=== PATIENT | female | born 1970 | race Caucasian/White ===

== ENCOUNTER 2017-05-04 20:54 | Emergency (ER) | payer MEDICAID, OTHER ==
--- NOTE | 2017-05-04 23:56 | ER Document Report ---
ED General - General Chief Complaint: Leg Swelling Stated Complaint: LEG PAIN Time Seen by Provider: 05/04/17 22:45 Mode of Arrival: Ambulatory Information source: Patient Notes: 46-year-old female presents to ED for complaint of back pain since yesterday and bilateral leg swelling and pain today. There is no obvious swelling while seen in the ED. She denies any fall or injuries to her back. She is on pain management from her neurologist of narcotics and gabapentin. TRAVEL OUTSIDE OF THE [place] IN LAST 30 DAYS: No - HPI Onset: Yesterday Onset/Duration: Gradual, Intermittent Quality of pain: Achy Severity: Moderate Pain Level: 3 Associated symptoms: Leg swelling, Other - Back pain Exacerbated by: Movement, Walking Relieved by: Denies Similar symptoms previously: Yes Recently seen / treated by doctor: No - Related Data Allergies/Adverse Reactions: No Known Allergies Allergy (Verified 05/04/17 20:57) Past Medical History - General Information source: Patient - Social History Smoking Status: Never Smoker Cigarette use (# per day): No Chew tobacco use (# tins/day): No Smoking Education Provided: No Frequency of alcohol use: None Drug Abuse: None Lives with: Family Family History: CAD - mother, Hyperlipidemia, Hypertension Patient has suicidal ideation: No Patient has homicidal ideation: No - Past Medical History Cardiac Medical History: Reports: Hx Coronary Artery Disease, Hx Heart Attack, Hx Hypercholesterolemia, Hx Hypertension Pulmonary Medical History: Reports: Hx Pneumonia - as child EENT Medical History: Reports: None Neurological Medical History: Reports: Hx Migraine Endocrine Medical History: Reports: Hx Diabetes Mellitus Type 2 Renal/ Medical History: Reports: None Malignancy Medical History: Reports: None GI Medical History: Reports: Hx Cirrhosis, Hx Gastroesophageal Reflux Disease Musculoskeltal Medical History: Reports None Skin Medical History: Reports None Psychiatric Medical History: Reports: Hx Depression Traumatic Medical History: Reports: None Infectious Medical History: Reports: None Past Surgical History: Reports: Hx Cardiac Catheterization, Hx Cholecystectomy, Hx Coronary Stent, Hx Tonsillectomy - Immunizations Hx Diphtheria, Pertussis, Tetanus Vaccination: Yes Review of Systems - Review of Systems Constitutional: No symptoms reported EENT: No symptoms reported Cardiovascular: No symptoms reported Respiratory: No symptoms reported Gastrointestinal: No symptoms reported Genitourinary: No symptoms reported Female Genitourinary: No symptoms reported Musculoskeletal: Back pain, Leg swelling - leg pain Skin: No symptoms reported Hematologic/Lymphatic: No symptoms reported Neurological/Psychological: No symptoms reported -: Yes All other systems reviewed and negative Physical Exam - Vital signs Vitals: Temp Pulse Resp BP Pulse Ox 98.5 F 93 17 132/98 H 98 05/04/17 21:36 05/04/17 21:36 05/04/17 21:36 05/04/17 21:36 05/04/17 21:36 Interpretation: Normal - General General appearance: Appears well, Alert - HEENT Head: Normocephalic, Atraumatic Eyes: Normal Pupils: PERRL - Respiratory Respiratory status: No respiratory distress Chest status: Nontender Breath sounds: Normal Chest palpation: Normal - Cardiovascular Rhythm: Regular Heart sounds: Normal auscultation Murmur: No - Abdominal Inspection: Normal Distension: No distension Bowel sounds: Normal Tenderness: Nontender Organomegaly: No organomegaly - Back Back: Normal, Nontender - Extremities General upper extremity: Normal inspection, Normal color, Normal ROM, Normal temperature General lower extremity: Normal inspection, Normal color, Normal ROM, Normal temperature, Normal weight bearing. No: Teo's sign Calf: Tender Ankle: Tender. No: Edema Foot: Normal, Nontender. No: Edema - Neurological Neuro grossly intact: Yes Cognition: Normal Orientation: AAOx4 Abram Coma Scale Eye Opening: Spontaneous [place] Coma Scale Verbal: Oriented [place] Coma Scale Motor: Obeys Commands [place] Coma Scale Total: 15 Speech: Normal Motor strength normal: LUE, RUE, LLE, RLE Sensory: Normal - Psychological Associated symptoms: Normal affect, Normal mood - Skin Skin Temperature: Warm Skin Moisture: Dry Skin Color: Normal Course - Re-evaluation Re-evalutation: 05/05/17 00:09 Patient denies any loss of control of bowel bladder, no saddle anesthesia, no loss of control of lower extremities, and no loss of sensation to her lower extremities. Patient complains of pitting edema to bilateral extremities but there is no edema noted. She has good pedal pulses. Patient became very angry and stated that she does have edema I do not know her ankles. I told her that she does not have pitting edema and if she has mild edema there is she can follow-up with her primary doctor for that. I instructed him to elevation and ice for her pain and to follow-up with her doctor on Michelle. - Vital Signs Vital signs: Temp Pulse Resp BP Pulse Ox 98.8 F 96 16 137/73 H 97 05/04/17 23:55 05/04/17 23:55 05/04/17 23:55 05/04/17 23:55 05/04/17 23:55 Discharge - Discharge Clinical Impression: Leg pain, bilateral Low back pain Qualifiers: Chronicity: unspecified Back pain laterality: bilateral Sciatica presence: without sciatica Qualified Code(s): M54.5 - Low back pain HTN (hypertension) Qualifiers: Hypertension type: unspecified Qualified Code(s): I10 - Essential (primary) hypertension Condition: Stable Disposition: HOME, SELF-CARE Additional Instructions: LOW BACK PAIN: Three out of every four people will have an episode of disabling back pain during their lifetime. Most commonly the pain is due to straining of the muscles and ligaments in the low back. Usual treatment includes: (1) Rest on a firm surface. Avoid lying on your stomach. (2) Ice pack the painful area. After a few days, gentle heat may be used intermittently to relax the area, or ice packs can be continued. (3) Medication may be needed -- muscle relaxers and antiinflammatory medicines are commonly used. (4) As the back improves, exercises are prescribed to strengthen the back and abdominal muscles. Your doctor will advise you on the proper care for your back at each stage in your recovery. You may be better in a few days -- or healing may take several weeks. If new symptoms of a "herniated disc" (radiation of pain, numbness, or tingling down the back of the leg or weakness in the leg) occur, you should be re-examined. Further testing may be necessary. Leg Pain, Nonspecific We did not find an obvious cause for your leg pain. There's no sign of blood clot, infection, or other serious disease. Possible causes of vague leg pain include muscle or joint inflammation, disc disease in the lower back, pressure on the nerves in the back, or reduced blood flow through the arteries of the leg. Rest the leg. Pain can be eased with an antiinflammatory pain medicine such as ibuprofen. If the pain involves a small area, a heating pad might help. Call the doctor or return if the leg becomes swollen, weak, discolored, or increasingly painful, or if you develop any other significant change in your health. ICE PACKS: Apply ice packs frequently against the painful area. Many different schedules are recommended, such as "20 minutes on, 20 minutes off" or "one hour ice, two hours rest." If you need to work, you may need to go longer between ice treatments. You should plan to have the area ice packed AT LEAST one fourth of the time. The ice should be applied over the wrap, tape, or splint, or over a layer of cloth -- not directly against the skin. Some ice bags have a built-in cloth and can be put directly on the skin. WARM PACKS: After approximately two days, apply gentle heat (such as a heating pad or hot water bottle) for about 20 to 30 minutes about every two hours -- at least four times daily. Warmth and elevation will help you make a more rapid recovery , and will ease the pain considerably. Do not use HOT heat, and never apply heat for longer than 30 minutes. The continuous heat can invisibly damage skin and muscles -- even when no burn is seen on the surface. Damaged muscles can make you MORE sore. FOLLOW-UP CARE: If you have been referred to a physician for follow-up care, call the physician s office for an appointment as you were instructed or within the next two days. If you experience worsening or a significant change in your symptoms, notify the physician immediately or return to the Emergency Department at any time for re-evaluation. Forms: Elevated Blood Pressure Referrals: HERMINIO BRICE PA-C [Primary Care Provider] - 05/06/17
[2017-05-04 23:57] VITALS: BP 137/73
== END 2017-05-05 00:12 | disposition home or self-care (01) ==
LOC: ER 20:54
DX: M79.604 Pain in right leg (principal); M79.605 Pain in left leg; M54.5 Low back pain; I10 Essential (primary) hypertension; M79.89 Other specified soft tissue disorders
CPT/HCPCS: 99283

== ENCOUNTER 2018-01-26 08:50 | Emergency (ER) | payer OTHER ==
--- NOTE | 2018-01-26 10:55 | ER Document Report ---
ED General - General Chief Complaint: Leg Swelling Stated Complaint: LEG SWELLING Time Seen by Provider: 01/26/18 10:37 Mode of Arrival: Ambulatory Information source: Patient Notes: Patient is a 47-year-old morbidly obese female comes emergency room complaining of bilateral lower extremity swelling and edema. Patient has a history of cirrhosis of the liver nonalcoholic and has possibly stage I liver failure. Patient saw her primary care provider on 01/13/2018 and was placed on some Spironolactone and Lasix. Patient states she is taking as ordered but she is not losing any fluid. The lower extremities starting to swell with puffiness to both feet bilaterally and up into the mid calf just below the knees. The area there is very taut and painful. Patient also states that she has been falling when asked she says a lot of trips and falls and that she has been feeling dizzy. She also says that she has gained weight in her abdomen over the last few days as well. She is currently seeing Dr. Altagracia Holliday for this liver problem and has scheduled outpatient diagnostics coming up in the next month. Patient also complains of right middle finger swelling and discomfort. She states when she fell she landed on her right hand and her right index finger and right middle finger are very painful. TRAVEL OUTSIDE OF THE [place] IN LAST 30 DAYS: No - HPI Onset: Other - Worse the last 3 days. Onset/Duration: Gradual Quality of pain: Achy, Fullness, Pressure, Throbbing Severity: Moderate Pain Level: 3 Context: Cirrhosis of the liver nonalcoholic and possibly stage I liver failure Associated symptoms: Weakness Exacerbated by: Standing, Movement, Walking Relieved by: Denies Similar symptoms previously: Yes Recently seen / treated by doctor: Yes - Related Data Allergies/Adverse Reactions: No Known Allergies Allergy (Verified 01/26/18 08:52) Past Medical History - General Information source: Patient - Social History Smoking Status: Current Some Day Smoker Cigarette use (# per day): Yes Chew tobacco use (# tins/day): No Smoking Education Provided: Yes Frequency of alcohol use: Rare Drug Abuse: None Lives with: Family Family History: CAD - mother, Hyperlipidemia, Hypertension Patient has suicidal ideation: No Patient has homicidal ideation: No - Past Medical History Cardiac Medical History: Reports: Hx Coronary Artery Disease, Hx Heart Attack, Hx Hypercholesterolemia, Hx Hypertension Pulmonary Medical History: Reports: Hx Pneumonia - as child Denies: Hx Asthma, Hx Bronchitis, Hx COPD Neurological Medical History: Reports: Hx Migraine. Denies: Hx Cerebrovascular Accident, Hx Seizures Endocrine Medical History: Reports: Hx Diabetes Mellitus Type 2 Renal/ Medical History: Denies: Hx Peritoneal Dialysis GI Medical History: Reports: Hx Cirrhosis, Hx Gastroesophageal Reflux Disease Musculoskeletal Medical History: Denies Hx Arthritis Psychiatric Medical History: Reports: Hx Depression Past Surgical History: Reports: Hx Cardiac Catheterization, Hx Cholecystectomy, Hx Coronary Stent, Hx Tonsillectomy. Denies: Hx Pacemaker - Immunizations Hx Diphtheria, Pertussis, Tetanus Vaccination: Yes Review of Systems - Review of Systems Constitutional: Weakness, Weight gain EENT: No symptoms reported Cardiovascular: No symptoms reported Respiratory: No symptoms reported Gastrointestinal: Abdomen distended Genitourinary: No symptoms reported Female Genitourinary: No symptoms reported Musculoskeletal: Joint swelling, Muscle pain, Leg swelling, Ankle swelling Skin: No symptoms reported Hematologic/Lymphatic: No symptoms reported Neurological/Psychological: No symptoms reported -: Yes All other systems reviewed and negative Physical Exam - Vital signs Vitals: Temp Pulse Resp BP Pulse Ox 98.3 F 84 16 110/52 L 93 01/26/18 08:59 01/26/18 08:59 01/26/18 08:59 01/26/18 08:59 01/26/18 08:59 Interpretation: Normal - Notes Notes: Uncomfortable appearing 47-year-old female - General General appearance: Alert In distress: Mild - HEENT Head: Normocephalic, Atraumatic Eyes: Normal Conjunctiva: Normal Sinus: Normal Nasal: Normal. No: Purulent discharge Mouth/Lips: Normal Mucous membranes: Normal, Moist Pharynx: Normal Neck: Normal - Respiratory Respiratory status: No respiratory distress Chest status: Nontender Breath sounds: Decreased air movement, Rales Chest palpation: Normal - Cardiovascular Rhythm: Regular Heart sounds: Normal auscultation Murmur: No - Abdominal Inspection: Morbidly Obese, Other - Inspection of the abdomen show patient has a very large distended abdomen that has a positive fluid wave. This goes down into the peduncle. Distension: Distended Bowel sounds: Normal Tenderness: Nontender Organomegaly: Hepatomegaly. No: Splenomegaly - Extremities General upper extremity: Tender, Normal strength, Normal temperature General lower extremity: Tender, Edema, Normal ROM, Normal strength Hand: Tender, Other - Examination of patient's right hand shows that she has some mild swelling to the right middle finger at the MIP in the PIP area. She has full range of motion but with discomfort. There is some swelling noted as well. Patient has good cap refill in the nailbed of the finger. On the right index finger is minimal swelling and tenderness to palpation full range of motion is noted Refill is good. Calf: Tender, Other - Examination patient's bilateral lower extremities shows edema 2+ pitting at least to the knee. Very taut calf area with a positive Homans bilaterally Ankle: Tender, Edema, Other - Examination of the ankle also shows swelling into the ankle area with full range of motion no other findings at the ankles. Foot: Tender, Edema, Other - Examination of bilateral feet show patient has dorsal swelling on bilateral feet 2+ pitting edema pulses are good on the dorsalis pedis although there are decreased secondary to the edema good posterior tibial pulses are normal. Cap refill on each toe bilaterally is within normal limits. - Neurological Neuro grossly intact: Yes Cognition: Normal Orientation: AAOx4 [place] Coma Scale Eye Opening: Spontaneous [place] Coma Scale Verbal: Oriented [place] Coma Scale Motor: Obeys Commands Abram Coma Scale Total: 15 Notes: The patient's neurologic exam is intact she does appear to either be groggy or possibly having a elevated ammonia level. We are going to go ahead and check labs on patient to see if we have any other abnormalities. Course - Re-evaluation Re-evalutation: 01/26/18 17:31 Patient's total length of stay here was quite excessive secondary to getting the ultrasounds of the lower extremities done because her ultrasound was backed up and then the hand x-ray and labs to be drawn so. So at this point I had a long discussion with patient her ammonia level just slightly elevated but not enough to cause any major problems right now her liver functions were normal with the exception of her alk phos is 109 and she her total bili was up just a little bit. She has had her gallbladder out already. At this point her ascites I do not think is large enough to tap however she does need to follow- up with her primary care provider relatively soon to see if they can arrange that as an outpatient therapy. I told patient that at this time I want her to double her Lasix I want her to take 40 mg twice daily for the next 3 days. I will write her some 20 mg tablets. At that point she should have enough time to see her primary care physician. I also suggested to her that she wear some compression stockings. I believe that she will get some benefit out of it. I have told her to come back to ER if she is getting more short of breath or has any concerns. - Vital Signs Vital signs: Temp Pulse Resp BP Pulse Ox 98.3 F 84 16 110/52 L 93 01/26/18 08:59 01/26/18 08:59 01/26/18 08:59 01/26/18 08:59 01/26/18 08:59 - Laboratory Result Diagrams: 01/26/18 11:23 01/26/18 11:23 Laboratory results interpreted by me: 01/26/18 01/26/18 01/26/18 11:23 11:23 11:23 RDW 14.3 H Plt Count 61 L Sodium 134.6 L Glucose 254 H Total Bilirubin 1.5 H Direct Bilirubin 0.7 H Ammonia 41.1 H Albumin 3.4 L Discharge - Discharge Clinical Impression: Lower extremity edema Ascites Qualifiers: Ascites type: other type Qualified Code(s): R18.8 - Other ascites Finger contusion Qualifiers: Encounter type: initial encounter Finger: middle finger Damage to nail status: without damage Laterality: right Qualified Code(s): S60.031A - Contusion of right middle finger without damage to nail, initial encounter Condition: Stable Disposition: HOME, SELF-CARE Instructions: Cirrhosis ([facility]), Dependent Edema ([facility]) Additional Instructions: Home and rest. Contact your primary care physician for a follow-up visit very soon. As we discussed I believe your ascites is getting to the point of possibly having it taken out and this can be done as an outpatient. Should you have any increasing shortness of breath return to ER for a recheck. Your liver functions are relatively normal as we discussed however your ammonia level was just slightly elevated but not enough to be concerned at this point. It something that you need to monitor very closely. Next At this point I want you to take 40 mg of Lasix twice a day for the next 3 days and take your spironolactone as directed. This should help remove some of the fluid from your lower extremities. Should you have any concerns or problems while taking his medication return to ER for recheck Also we discussed I believe that compression stockings will be very good for you. You may find some at [facility] or at any of the medical supply places. I would highly suggest no stockings to the knee I would suggest at least thigh- high and preferably pantyhose. Again hearing problems return to ER. Prescriptions: Furosemide [Lasix 40 mg Tablet] 40 mg PO BID #20 tablet Forms: Elevated Blood Pressure, Smoking Cessation Education
[2018-01-26 11:51] LABS: ABSOLUTE EOSINOPHILS # (AUTO) 0.1 10^3/uL (0.0-0.6); ABSOLUTE LYMPHOCYTES (AUTO) 1.2 10^3/uL (0.5-4.7); ABSOLUTE MONOCYTES (AUTO) 0.5 10^3/uL (0.1-1.4); ABSOLUTE NEUT (AUTO) 2.6 10^3/uL (1.7-8.2); EOSINOPHILS % (AUTO) 1.8 % (0-6); HEMATOCRIT 36.4 % (36.0-47.0); HEMOGLOBIN 12.5 g/dL (12.0-15.5); LYMPHOCYTES % (AUTO) 27.9 % (13-45); MEAN CORPUSCULAR HEMOGLOBIN 30.7 pg (27.0-33.4); MEAN CORPUSCULAR HGB CONC 34.4 g/dL (32.0-36.0); MEAN CORPUSCULAR VOLUME 90 fl (80-97); MONOCYTES % (AUTO) 10.3 % (3-13); RED BLOOD COUNT 4.07 10^6/uL (3.72-5.28); RED CELL DISTRIBUTION WIDTH 14.3 % (11.5-14.0); TOTAL CELLS COUNTED % (AUTO) 100 %; WHITE BLOOD COUNT 4.5 10^3/uL (4.0-10.5)
[2018-01-26 11:52] LABS: ALANINE AMINOTRANSFERASE 21 U/L (9-52); ALBUMIN 3.4 g/dL (3.5-5.0); ALKALINE PHOSPHATASE 109 U/L (38-126); ANION GAP 9 (5-19); ASPARTATE AMINO TRANSFERASE 35 U/L (14-36); BILIRUBIN,DIRECT 0.7 mg/dL (0.0-0.4); BILIRUBIN,TOTAL 1.5 mg/dL (0.2-1.3); BLOOD UREA NITROGEN 14 mg/dL (7-20); CALCIUM 8.4 mg/dL (8.4-10.2); CARBON DIOXIDE 27 mmol/L (22-30); CHLORIDE 99 mmol/L (98-107); GLUCOSE 254 mg/dL (75-110); LIPASE 92.2 U/L (23-300); POTASSIUM 3.8 mmol/L (3.6-5.0); SODIUM 134.6 mmol/L (137-145); TOTAL PROTEIN 7.4 g/dL (6.3-8.2)
[2018-01-26 12:11] LABS: PLATELET COUNT 61 10^3/uL (150-450)
--- NOTE | 2018-01-26 15:45 | RADIOLOGY REPORT (SQ) ---
EXAM DESCRIPTION: HAND RIGHT 3 VIEWS COMPLETED DATE/TIME: 01/26/2018 3:36 pm REASON FOR STUDY: fall COMPARISON: None. EXAM PARAMETERS: NUMBER OF VIEWS: Three views. TECHNIQUE: AP, lateral and oblique radiographic images acquired of the right hand. LIMITATIONS: None. FINDINGS: MINERALIZATION: Normal. BONES: No acute fracture or dislocation. No worrisome bone lesions. JOINTS: No effusions. SOFT TISSUES: No soft tissue swelling. No foreign body. OTHER: No other significant finding. IMPRESSION: NEGATIVE STUDY OF THE RIGHT HAND. NO RADIOGRAPHIC EVIDENCE OF ACUTE INJURY. TECHNICAL DOCUMENTATION: JOB ID: [id number] [employer]- All Rights Reserved Reading location - IP/workstation name: [email or web address]
--- NOTE | 2018-01-26 16:21 | RADIOLOGY REPORT (SQ) ---
EXAM DESCRIPTION: VENOUS BILATERAL LOWER COMPLETED DATE/TIME: 01/26/2018 4:10 pm REASON FOR STUDY: pain left leg / Hx clots COMPARISON: None. TECHNIQUE: Dynamic and static packer scale and color images acquired of both lower extremity venous sy stems. Selected spectral images acquired with additional compression and augmentation maneuvers. Imag es stored on PACS. LIMITATIONS: None. FINDINGS: RIGHT LEG COMMON FEMORAL AND FEMORAL: Normal phasicity, compression and augmentation. No visualized echogenic m aterial on packer scale. No defects on color images. POPLITEAL: Normal compression and augmentation. No visualized echogenic material on packer scale. No de fects on color images. CALF VESSELS: Normal compression and augmentation. No visualized echogenic material on packer scale. No defects on color image. GSV AND SSV: Normal compression. No visualized echogenic material on packer scale. No defects on color images. ANY DEEP VENOUS INSUFFICIENCY: Not evaluated. ANY EVIDENCE OF POPLITEAL CYST: No. OTHER: No other significant finding. LEFT LEG COMMON FEMORAL AND FEMORAL: Normal phasicity, compression and augmentation. No visualized echogenic m aterial on packer scale. No defects on color images. POPLITEAL: Normal compression and augmentation. No visualized echogenic material on packer scale. No de fects on color images. CALF VESSELS: Normal compression and augmentation. No visualized echogenic material on packer scale. No defects on color images. GSV AND SSV: Normal compression. No visualized echogenic material on packer scale. No defects on color images. ANY DEEP VENOUS INSUFFICIENCY: Not evaluated. ANY EVIDENCE POPLITEAL CYST: No. OTHER: No other significant finding. IMPRESSION: NO EVIDENCE DVT OR SVT IN EITHER LEG. TECHNICAL DOCUMENTATION: JOB ID: [id number] [employer]- All Rights Reserved Reading location - IP/workstation name: [email or web address]
[2018-01-26 18:00] VITALS: BP 103/55
== END 2018-01-26 18:00 | disposition home or self-care (01) ==
LOC: ER 08:50
DX: S60.031A Contusion of right middle finger without damage to nail, initial encounter (principal); R60.0 Localized edema; R18.8 Other ascites; F17.210 Nicotine dependence, cigarettes, uncomplicated
CPT/HCPCS: 36415; 80053; 82140; 83690; 83880; 85025; 93970; 99284

== ENCOUNTER 2018-02-02 09:05 | Day surgery (SDC) | payer OTHER ==
[~2018-02-02 09:05] MED LIST: PROPOFOL INJ 200 MG/20 ML VIAL IV ONE
[2018-02-02 11:58] VITALS: BP 94/54
--- NOTE | 2018-02-02 12:34 | Operative Report ---
Operative Report DATE OF SURGERY: 02/02/18 Operative Report: The risks benefits and alternatives of the procedure explained to the patient in detail and informed consent is obtained.A GIF Olympus video scope was inserted into the patient's mouth and hypopharynx, the esophagus is identified intubated and insufflated, the scope was then advanced through the esophagus stomach and duodenum, retroflexion maneuver is done, the esophagus stomach and first and second portions of the duodenum examined PREOPERATIVE DIAGNOSIS: Follow-up for possible esophageal banding for previous history of esophageal varices POSTOPERATIVE DIAGNOSIS: Negative for esophageal varices and gastric varices. No AVMs noted. Gastritis status post biopsy rule out Helicobacter pylori OPERATION: EGD with biopsy SURGEON: SUSAN CADET ANESTHESIA: LMAC TISSUE REMOVED OR ALTERED: As noted above. COMPLICATIONS: None. ESTIMATED BLOOD LOSS: None. INTRAOPERATIVE FINDINGS: As noted above. PROCEDURE: Patient tolerated the procedure well. No immediate postprocedure complications are noted. Patient discharged in good condition. Discharge date 02/02/2018. Discharge diet: Regular. Discharge activity: Regular. 2-3 week follow-up to discuss findings. Patient is instructed to call the office or proceed to the emergency room should there be any further problems or questions. Wait on the pathology.
== END 2018-02-02 12:04 | disposition home or self-care (01) ==
LOC: END 09:05
PROVIDERS: ATTEND Internal Medicine Gastroenterology
DX: K29.50 Unspecified chronic gastritis without bleeding (principal); K74.60 Unspecified cirrhosis of liver; E11.9 Type 2 diabetes mellitus without complications; M19.90 Unspecified osteoarthritis, unspecified site; I10 Essential (primary) hypertension; F17.210 Nicotine dependence, cigarettes, uncomplicated; G47.30 Sleep apnea, unspecified; E87.5 Hyperkalemia; I25.10 Atherosclerotic heart disease of native coronary artery without angina pectoris; Z79.899 Other long term (current) drug therapy; Z79.84 Long term (current) use of oral hypoglycemic drugs; Z79.4 Long term (current) use of insulin; I25.2 Old myocardial infarction; Z79.82 Long term (current) use of aspirin
CPT/HCPCS: 43239; 82962; 88342 ×2; 88305 ×2; J2704; 731

== ENCOUNTER → 2018-02-09 | Outpatient (CLI) | payer OTHER ==
--- NOTE | 2018-02-09 09:43 | RADIOLOGY REPORT (SQ) ---
EXAM DESCRIPTION: U/S ABDOMEN COMPLETE W/DOPPLER COMPLETED DATE/TIME: 02/09/2018 9:17 am REASON FOR STUDY: CIRRHOSIS OF LIVER W/ ASCITES K74.60 UNSPECIFIED CIRRHOSIS OF LIVER COMPARISON: 07/26/2010 TECHNIQUE: Dynamic and static grayscale images acquired of the abdomen and recorded on PACS. Silvinoo annelise selected color Doppler and spectral images recorded. LIMITATIONS: None. FINDINGS: PANCREAS: No masses. Visualized pancreatic duct normal caliber. LIVER: Nodular contour and diffuse increased heterogenous coarsened echotexture to the liver parench yma, likely related to the patient's known history of underlying liver disease. The liver measures 18 .1 cm in length. hepatomegaly. LIVER VASCULATURE: Normal directional flow of the main portal vein and hepatic veins. GALLBLADDER: Prior cholecystectomy. ULTRASOUND-DETECTED VALENZUELA'S SIGN: Negative. INTRAHEPATIC DUCTS AND COMMON DUCT: CBD measures 4.5 mm in diameter, normal. The intrahepatic ducts normal caliber. No filling defects. INFERIOR VENA CAVA: Normal flow. AORTA: No aneurysm. RIGHT KIDNEY: The right kidney measures 11.4 cm in length, normal size. Normal echogenicity. No solid or suspicious masses. No hydronephrosis. No calcifications. LEFT KIDNEY: The left kidney measures 11.4 cm in length, normal size. Normal echogenicity. No so lid or suspicious masses. No hydronephrosis. No calcifications. SPLEEN: The spleen measures 16.8 cm in length, splenomegaly. PERITONEAL AND PLEURAL SPACES: No ascites or effusions. OTHER: No other significant finding. IMPRESSION: 1. Diffuse increased coarsened heterogenous echotexture to the liver parenchyma and nod ular contour, likely related to the patient's known history of underlying liver disease. 2. Hepatosplenomegaly. 3. Prior cholecystectomy. 4. No evidence of ascites. TECHNICAL DOCUMENTATION: JOB ID: [id number] [employer]- All Rights Reserved Reading location - IP/workstation name: [email or web address]
== END ==
LOC: RAD 08:07
PROVIDERS: ATTEND Internal Medicine Gastroenterology
DX: K74.60 Unspecified cirrhosis of liver (principal)
CPT/HCPCS: 76700; 93976

== ENCOUNTER 2018-02-20 07:36 | Day surgery (SDC) | payer OTHER ==
[2018-02-20] MEDS ORDERED: PROPOFOL INJ 200 MG/20 ML VIAL IV ONE (08:35)
--- NOTE | 2018-02-20 09:23 | EKG REPORT ---
SEVERITY:- BORDERLINE ECG - SINUS RHYTHM BORDERLINE T ABNORMALITIES, INFERIOR LEADS : Confirmed by: Tierney Mullen MD 20-Feb-2018 09:22:59
[2018-02-20] MEDS ORDERED: PROMETHAZINE HCL INJ 25 MG/1 ML VIAL IV PRN ×2 (09:34)
[2018-02-20] MEDS ORDERED: FENTANYL CITRATE INJ/PF 100 MCG/2 ML AMPUL IV PRN (09:34)
[2018-02-20] MEDS ORDERED: OXYCODONE-ACETAMINOPHEN 5-325 MG TABLET PO PRN ×2 (09:34)
[2018-02-20] MEDS ORDERED: DIPHENHYDRAMINE HCL 50 MG/ML VIAL IV PRN (09:34)
[2018-02-20] MEDS ORDERED: MEPERIDINE HCL/PF INJ 25 MG/1 ML DISP.SYRIN IV PRN (09:34)
--- NOTE | 2018-02-20 09:51 | Operative Report ---
Operative Report DATE OF SURGERY: 02/20/18 Operative Report: The risks, benefits and alternatives of the procedure including the risks of bleeding, perforation requiring surgery are explained to the patient in detail and informed consent is obtained. The patient is brought back to the operating room and placed in the left, lateral decubital position. Timeout was called. Propofol medication is administered. A rectal examination is done which did not reveal any masses, tears or fissures. An Olympus videoscope was inserted into the patient's rectum. Scope was then carefully advanced all the way to the cecum. Cecum was identified by the usual anatomical landmarks including the ileocecal valve as well as the appendiceal office. Photodocumentation is obtained. The scope was then sequentially pulled back via the rest segments of the colon including the ascending colon, hepatic flexure, transverse colon, splenic flexure, descending colon and finally into the rectosigmoid portions of the colon. Retroflexion maneuver is performed. Scope withdrawal time 10 minutes. PREOPERATIVE DIAGNOSIS: Change of bowel habits POSTOPERATIVE DIAGNOSIS: Descending colon polyp removed via snare polypectomy. Random right colon biopsy rule out lymphocytic, collagenous colitis for patient' s change of bowel habits OPERATION: Colonoscopy with snare polypectomy. Colonoscopy with biopsy SURGEON: SUSAN CADET ANESTHESIA: LMAC TISSUE REMOVED OR ALTERED: As noted above COMPLICATIONS: None. ESTIMATED BLOOD LOSS: None. INTRAOPERATIVE FINDINGS: As noted above. PROCEDURE: Patient tolerated the procedure well. No immediate postprocedure complications are noted. Patient discharged in good condition. Discharge date 02/20/2018. Discharge diet: Regular. Discharge activity: Regular. 2-3-week follow-up to discuss findings. Patient is instructed call the office or proceed to the emergency room should there be any further problems or questions. Wait on the pathology. 5-year surveillance colonoscopy.
[2018-02-20] MEDS ORDERED: ACETAMINOPHEN 325 MG TABLET PO PRN (09:56)
[2018-02-20] MEDS ORDERED: SIMETHICONE 80 MG TAB.CHEW PO PRN (09:56)
[2018-02-20] MEDS ORDERED: PROMETHAZINE HCL INJ 25 MG/1 ML VIAL INJ PRN (09:57)
[2018-02-20] MEDS ORDERED: DEXTROSE 5%-1/2 NORMAL SALINE 1,000 ML IV PRN (09:58)
[2018-02-20 11:06] VITALS: BP 112/70
== END 2018-02-20 11:05 | disposition home or self-care (01) ==
LOC: OROUT 07:36
PROVIDERS: ATTEND Internal Medicine Gastroenterology
DX: D12.4 Benign neoplasm of descending colon (principal); E11.9 Type 2 diabetes mellitus without complications; I10 Essential (primary) hypertension; K75.81 Nonalcoholic steatohepatitis (NASH); F17.210 Nicotine dependence, cigarettes, uncomplicated; E78.5 Hyperlipidemia, unspecified; K21.9 Gastro-esophageal reflux disease without esophagitis; I25.10 Atherosclerotic heart disease of native coronary artery without angina pectoris; I25.2 Old myocardial infarction; Z79.899 Other long term (current) drug therapy; Z79.84 Long term (current) use of oral hypoglycemic drugs
CPT/HCPCS: 45380; 45385; 36415; 82962; 84132; 81025; 88305 ×2; 93005; 93010; J2704; 811

== ENCOUNTER 2018-08-01 21:59 | Emergency (ER) | payer SELFPAY ==
[2018-08-02] MEDS ORDERED: ACETAMINOPHEN 325 MG TABLET PO ONE (01:23)
--- NOTE | 2018-08-02 02:13 | RADIOLOGY REPORT (SQ) ---
EXAM DESCRIPTION: XR HAND 3 OR MORE VIEWS right COMPLETED DATE/TME: 08/02/2018 01:24 CLINICAL HISTORY: 48 years, Female, pain COMPARISON: None. FINDINGS: No fracture or dislocation. Soft tissues are unremarkable. IMPRESSION: No acute abnormality.
--- NOTE | 2018-08-02 02:20 | ER Document Report ---
ED Flu Like - General Chief Complaint: Flu Symptoms Stated Complaint: BODY ACHES Time Seen by Provider: 08/02/18 00:40 Primary Care Provider: HERMINIO BRICE PA-C [Primary Care Provider] - Follow up as needed Notes: Patient is a 48-year-old female presents to the emergency department for generalized cough, congestion, sinus pressure, headache, subjective fever, body aches last 3 days. Patient also complains of generalized pain in her right hand after a fall 5 days ago. Patient states she has been taking [id number] NyQuil for her generalized cough congestion. Patient states she has a history of pneumonia which concerned her which is why she presents to the emergency room. Past medical history: Coronary artery disease, hypertension, hyperlipidemia, diabetes Medications: Metoprolol, Cymbalta, lisinopril, glipizide, loratadine, Norvasc Allergies: None TRAVEL OUTSIDE OF THE [place] IN LAST 30 DAYS: No - Related Data Allergies/Adverse Reactions: No Known Allergies Allergy (Verified 08/01/18 22:00) Past Medical History - General Information source: Patient - Social History Smoking Status: Never Smoker Family History: CAD - mother, Hyperlipidemia, Hypertension Patient has suicidal ideation: No Patient has homicidal ideation: No - Past Medical History Cardiac Medical History: Reports: Hx Coronary Artery Disease, Hx Heart Attack - STENT 2013 , Hx Hypercholesterolemia, Hx Hypertension Pulmonary Medical History: Denies: Hx Asthma, Hx Bronchitis, Hx COPD, Hx Pneumonia Neurological Medical History: Reports: Hx Migraine. Denies: Hx Cerebrovascular Accident, Hx Seizures Endocrine Medical History: Reports: Hx Diabetes Mellitus Type 2 Renal/ Medical History: Denies: Hx Peritoneal Dialysis GI Medical History: Reports: Hx Cirrhosis, Hx Gastroesophageal Reflux Disease Musculoskeletal Medical History: Denies Hx Arthritis Psychiatric Medical History: Reports: Hx Depression Past Surgical History: Reports: Hx Cardiac Catheterization, Hx Cholecystectomy, Hx Coronary Stent, Hx Tonsillectomy. Denies: Hx Pacemaker - Immunizations Hx Diphtheria, Pertussis, Tetanus Vaccination: Yes Review of Systems - Review of Systems Constitutional: See HPI EENT: See HPI Cardiovascular: No symptoms reported Respiratory: See HPI Gastrointestinal: No symptoms reported Genitourinary: No symptoms reported Female Genitourinary: No symptoms reported Musculoskeletal: No symptoms reported Skin: No symptoms reported Hematologic/Lymphatic: No symptoms reported Neurological/Psychological: No symptoms reported Physical Exam - Vital signs Vitals: Temp Pulse Resp BP Pulse Ox 98.3 F 75 17 150/90 H 100 08/01/18 22:34 08/01/18 22:34 08/01/18 22:34 08/01/18 22:34 08/01/18 22:34 - Notes Notes: GENERAL: Alert, interacts well. No acute distress. HEAD: Normocephalic, atraumatic. No frontal or maxillary sinus tenderness noted EYES: Pupils equal, round, and reactive to light. Extraocular movements intact. ENT: Oral mucosa moist, tongue midline. Nares patent, TM's intact, nonerythematous, nonbulging bilaterally. Pharynx within normal limits no palatal petechiae or exudate noted. NECK: Full range of motion. Supple. Trachea midline. No lymphadenopathy appreciated LUNGS: Clear to auscultation bilaterally, no wheezes, rales, or rhonchi. No respiratory distress. HEART: Regular rate and rhythm. No murmur ABDOMEN: Soft, non-tender. Non-distended. Bowel sounds present in all 4 quadrants. EXTREMITIES: Moves all 4 extremities spontaneously. No edema, normal radial and dorsalis pedis pulses bilaterally. No cyanosis. Generalized pain noted right dorsal fifth metacarpal. No snuffbox tenderness noted. BACK: no cervical, thoracic, lumbar midline tenderness. No saddle anesthesia, normal distal neurovascular exam. NEUROLOGICAL: Alert and oriented x3. Normal speech. cranial nerves II through XII grossly intact. PSYCH: Normal affect, normal mood. SKIN: Warm, dry, normal turgor. No rashes or lesions noted. Course - Re-evaluation Re-evalutation: 08/02/18 02:18 Patient's lung sounds are clear and equal in all grimes with no respiratory distress noted, room air oxygen saturation is noted to be 100%. Patient has no frontal or maxillary sinus tenderness noted. I do not feel as though chest x- ray is warranted at this time, no signs of sinusitis noticed. Patient's x-ray of her right hand shows no signs of fractures. She continued without snuffbox tenderness. Discussed use of [id number] Coricidin due to her hypertension. Discussed likely viral diagnosis and need to follow-up with primary care provider. Patient is stable for discharge. - Vital Signs Vital signs: Temp Pulse Resp BP Pulse Ox 98.3 F 75 17 150/90 H 100 08/01/18 22:34 08/01/18 22:34 08/01/18 22:34 08/01/18 22:34 08/01/18 22:34 Discharge - Discharge Clinical Impression: Upper respiratory infection Qualifiers: URI type: unspecified viral URI Qualified Code(s): J06.9 - Acute upper respiratory infection, unspecified Hand injury Qualifiers: Encounter type: initial encounter Laterality: right Qualified Code(s): S69.91XA - Unspecified injury of right wrist, hand and finger(s), initial encounter Condition: Stable Disposition: HOME, SELF-CARE Instructions: Upper Respiratory Illness ([facility]) Additional Instructions: As we discussed you have been seen and treated in the emergency department for an upper respiratory infection. These are typically caused by viruses and do not respond to antibiotics. Please make sure you are taking [id number]-[id number] Coricidin HBP. This is a medication that is safe with your hypertension. Please also stay well-hydrated and follow-up with your primary care provider in the next 24-48 hours. Please return to the emergency room for any other concerning symptoms. X-rays of your right hand also revealed no signs of fractures. Prescriptions: Mometasone Furoate [Nasonex] 1 spray NS Q12 #1 spray.pump Forms: Return to Work Referrals: HERMINIO BRICE PA-C [Primary Care Provider] - Follow up as needed
[2018-08-02 02:33] VITALS: BP 130/58
== END 2018-08-02 02:34 | disposition home or self-care (01) ==
LOC: ER 21:59
DX: J06.9 Acute upper respiratory infection, unspecified (principal); B97.89 Other viral agents as the cause of diseases classified elsewhere; S69.91XA Unspecified injury of right wrist, hand and finger(s), initial encounter; W19.XXXA Unspecified fall, initial encounter; Y93.89 Activity, other specified; R05 Cough; J34.89 Other specified disorders of nose and nasal sinuses; R51 Headache; I25.10 Atherosclerotic heart disease of native coronary artery without angina pectoris; I10 Essential (primary) hypertension; E11.9 Type 2 diabetes mellitus without complications; E78.00 Pure hypercholesterolemia, unspecified; E78.5 Hyperlipidemia, unspecified; F32.9 Major depressive disorder, single episode, unspecified; Z79.899 Other long term (current) drug therapy; Z79.84 Long term (current) use of oral hypoglycemic drugs; Z87.01 Personal history of pneumonia (recurrent); Z95.5 Presence of coronary angioplasty implant and graft
CPT/HCPCS: 99283

== ENCOUNTER 2019-04-05 17:59 | Emergency (ER) | payer SELFPAY ==
[2019-04-05 19:23] LABS: ABSOLUTE LYMPHOCYTES (AUTO) 0.6 10^3/uL (0.5-4.7); ABSOLUTE MONOCYTES (AUTO) 0.3 10^3/uL (0.1-1.4); ABSOLUTE NEUT (AUTO) 2.8 10^3/uL (1.7-8.2); BASOPHILS % (AUTO) 0.7 % (0-2); EOSINOPHILS % (AUTO) 0.8 % (0-6); HEMATOCRIT 40.3 % (36.0-47.0); HEMOGLOBIN 14.1 g/dL (12.0-15.5); MEAN CORPUSCULAR VOLUME 89 fl (80-97); MONOCYTES % (AUTO) 7.6 % (3-13); RED BLOOD COUNT 4.55 10^6/uL (3.72-5.28); RED CELL DISTRIBUTION WIDTH 13.6 % (11.5-14.0); SEGMENTED NEUTROPHILS % (AUTO) 74.9 % (42-78); TOTAL CELLS COUNTED % (AUTO) 100 %; WHITE BLOOD COUNT 3.8 10^3/uL (4.0-10.5)
[2019-04-05] MEDS ORDERED: DIPHENHYDRAMINE HCL 25 MG CAPSULE PO ONE (19:27)
[2019-04-05] MEDS ORDERED: METOCLOPRAMIDE HCL 10 MG TABLET PO ONE (19:27)
[2019-04-05] MEDS ORDERED: ACETAMINOPHEN 325 MG TABLET PO ONE (19:27)
[2019-04-05] MEDS ORDERED: LORAZEPAM 1 MG TABLET PO ONE (19:27)
[2019-04-05] MEDS ORDERED: AMOXICILLIN TR/POT CLAVULANATE 500-125 MG TAB PO ONE (19:28)
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
[2019-04-05 19:32] LABS: APPEARANCE,URINE CLEAR; BILIRUBIN,URINE NEGATIVE (NEGATIVE); COLOR,URINE YELLOW; GLUCOSE, URINE >=500 mg/dL (NEGATIVE); KETONES,URINE NEGATIVE (NEGATIVE); LEUKOCYTE ESTERASE,URINE TRACE (NEGATIVE); NITRITE,URINE NEGATIVE (NEGATIVE); PROTEIN,URINE NEGATIVE (NEGATIVE); URINE SPECIFIC GRAVITY 1.035; UROBILINOGEN,URINE NEGATIVE mg/dL (<2.0)
[2019-04-05 19:40] LABS: URINE AMPHETAMINES SCREEN NEGATIVE; URINE BARBITURATES SCREEN NEGATIVE; URINE BENZODIAZEPINES SCREEN NEGATIVE; URINE COCAINE SCREEN NEGATIVE; URINE MARIJUANA (THC) SCREEN NEGATIVE; URINE METHADONE SCREEN NEGATIVE; URINE PHENCYCLIDINE SCREEN NEGATIVE
[2019-04-05 19:50] LABS: ALBUMIN 3.8 g/dL (3.5-5.0); ALKALINE PHOSPHATASE 316 U/L (38-126); ANION GAP 11 (5-19); ASPARTATE AMINO TRANSFERASE 48 U/L (14-36); BILIRUBIN,DIRECT 0.3 mg/dL (0.0-0.4); BILIRUBIN,TOTAL 1.4 mg/dL (0.2-1.3); CARBON DIOXIDE 24 mmol/L (22-30); CHLORIDE 102 mmol/L (98-107); GLUCOSE 376 mg/dL (75-110); POTASSIUM 3.4 mmol/L (3.6-5.0)
[2019-04-05 19:52] LABS: ACETAMINOPHEN < 10 ug/mL (10-30); ALCOHOL < 10 mg/dL (NONE DETECTED); BLOOD UREA NITROGEN < 2 mg/dL (7-20); SALICYLATE < 1.0 mg/dL (2.0-20.0)
[2019-04-05 19:55] LABS: PLATELET COUNT 43 10^3/uL (150-450)
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
[2019-04-05] MEDS ORDERED: RINGERS SOLUTION,LACTATED 1,000 ML IV ONE (20:59)
[2019-04-05] MEDS ORDERED: INSULIN REG, HUMAN 100 UNIT/ML 3 ML VIAL (PYX) SUBCUT ONE (20:59)
[2019-04-05] MEDS: AMOXICILLIN TR/POT CLAVULANATE 500-125 MG TAB PO SCH ×2 (21:27→23:49)
--- NOTE | 2019-04-05 23:53 | EKG REPORT ---
SEVERITY:- ABNORMAL ECG - SINUS TACHYCARDIA BORDERLINE R WAVE PROGRESSION, ANTERIOR LEADS NONSPECIFIC T ABNORMALITIES, INFERIOR LEADS : Confirmed by: Gauri Gann 05-Apr-2019 23:52:40
[2019-04-06] MEDS ORDERED: GABAPENTIN 400 MG CAPSULE PO ONE (00:30)
[2019-04-06] MEDS ORDERED: AMITRIPTYLINE HCL 50 MG TABLET PO ONE (00:30)
[2019-04-06] MEDS ORDERED: LISINOPRIL 10 MG TABLET PO ONE (00:45)
[2019-04-06] MEDS ORDERED: INSULIN REG, HUMAN 100 UNIT/ML 3 ML VIAL (PYX) SUBCUT ONE (01:15)
[2019-04-06] MEDS ORDERED: GLUCAGON,HUMAN RECOMB 1 MG INJ IM PRN (01:30)
[2019-04-06] MEDS ORDERED: DEXTROSE 40% GEL 15 GM TUBE X 2 PO PRN (01:30)
[2019-04-06] MEDS ORDERED: DEXTROSE 40% GEL 15 GM TUBE PO PRN (01:30)
[2019-04-06] MEDS ORDERED: DEXTROSE 50%-WATER SYRINGE 25 GM/50 ML DOSE IV PRN (01:30)
[2019-04-06] MEDS ORDERED: DEXTROSE 50%-WATER SYRINGE 12.5 GM/25 ML DOSE IV PRN (01:30)
[2019-04-06] MEDS ORDERED: GABAPENTIN 400 MG CAPSULE PO SCH (06:00)
[2019-04-06 06:40] LABS: ANION GAP 6 (5-19); BLOOD UREA NITROGEN 3 mg/dL (7-20); CALCIUM 8.5 mg/dL (8.4-10.2); CARBON DIOXIDE 26 mmol/L (22-30); CHLORIDE 108 mmol/L (98-107); GLUCOSE 238 mg/dL (75-110); POTASSIUM 3.3 mmol/L (3.6-5.0)
[2019-04-06] MEDS: INSULIN REG, HUMAN 100 UNIT/ML 3 ML VIAL (PYX) SUBCUT SCH ×2 (08:31→11:47)
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
--- NOTE | 2019-04-06 09:57 | ER Document Report ---
Doctor's Note Notes: 04/06/19 09:57 Assessed patient. Patient is currently resting comfortably. Patient is awaiting placement per psychiatric recommendations.
[2019-04-06] MEDS ORDERED: LISINOPRIL 10 MG TABLET PO SCH (10:00)
[2019-04-06] MEDS ORDERED: FAMOTIDINE 20 MG TABLET PO SCH (10:00)
[2019-04-06] MEDS ORDERED: REG INSULIN SUBCUT SCH (10:00)
[2019-04-06] MEDS ORDERED: AMLODIPINE BESYLATE 5 MG TABLET PO SCH (10:00)
[2019-04-06] MEDS ORDERED: INSULIN NPH HUM SUBCUT SCH (10:00)
[2019-04-06] MEDS ORDERED: OLANZAPINE 5 MG TABLET PO ONE (10:41)
[2019-04-06 13:30] VITALS: BP 105/68
[2019-04-06] MEDS ORDERED: AMITRIPTYLINE HCL 50 MG TABLET PO SCH (22:00)
== END 2019-04-06 13:15 ==
LOC: ER 17:59
DX: R45.851 Suicidal ideations (principal); S60.511A Abrasion of right hand, initial encounter; S00.81XA Abrasion of other part of head, initial encounter; S20.319A Abrasion of unspecified front wall of thorax, initial encounter; S40.812A Abrasion of left upper arm, initial encounter; R51 Headache; Y04.2XXA Assault by strike against or bumped into by another person, initial encounter; M79.89 Other specified soft tissue disorders; F32.9 Major depressive disorder, single episode, unspecified; E11.65 Type 2 diabetes mellitus with hyperglycemia; F17.200 Nicotine dependence, unspecified, uncomplicated; I10 Essential (primary) hypertension; I25.10 Atherosclerotic heart disease of native coronary artery without angina pectoris; K21.9 Gastro-esophageal reflux disease without esophagitis; Z79.899 Other long term (current) drug therapy; Z95.5 Presence of coronary angioplasty implant and graft; Z63.79 Other stressful life events affecting family and household
CPT/HCPCS: 93005; 99285; 96360; 96361; 36415; 82962; 80307 ×4; 84703; 85025; 80048; 80053; 81001; 73130 ×2; 93010; J3490; J1815 ×2; J7120

== ENCOUNTER 2019-05-18 06:30 | Emergency (ER) | payer SELFPAY ==
--- NOTE | 2019-05-18 09:09 | ER Document Report ---
ED General - General Chief Complaint: Abdominal Swelling Stated Complaint: NAUSEA,ABDOMINAL PAIN,LEG SWELLING, H/O CIRRHOSIS Time Seen by Provider: 05/18/19 07:55 Primary Care Provider: HERMINIO BRICE PA-C [Primary Care Provider] - Follow up tomorrow SUSAN CADET MD [ACTIVE STAFF] - Follow up tomorrow TRAVEL OUTSIDE OF THE [place] IN LAST 30 DAYS: No - HPI Notes: 48-year-old female with a history of ascites, hypertension, hyperlipidemia, [place] type 2 diabetes presents to the emergency room with complaints of upper abdominal pain, vomiting, 18 pound weight gain in 3 days, nausea, cough that causes chest pain. reports her chest pain is substernal that radiates to the back for the last 3 days with coughing that comes and goes and fleeting, productive cough that creates some shortness of breath for the last 3 days. Patient states that she doubled up on her Lasix in the last 2 days which is not helped much. patient reports she has a hx of ascites, repoprts she has never had a paracentesis. Patient does follow with , marble setter. Patient was seen in [facility] a month ago for having a "nervous breakdown". Patient reports chills. Patient states she has CEJA denies drinking alcohol. Patient is a smoker. Did not get a flu shot this year. Denies diarrhea, hematuria,blurred vision, double vision, loss of vision, speech changes, LH, dizziness, syncope, headaches, wheezing, ST, URI, neck pain, weakness, bowel or bladder dysfunction, saddle anesthesia, numbness or tingling in bilateral upper or lower extremities equally, muscle paralysis, weakness in bilateral upper or lower extremities equally or rash. - Related Data Allergies/Adverse Reactions: No Known Allergies Allergy (Verified 05/18/19 06:54) Home Medications: Lasix. Lisinopril. Metoprolol 25mg. Metformin 500mg. Novolin 60 units. Phenergan PRN. Oxybutynin 5mg. Duloextine 60mg. Chlorzaxozone 500mg. Gabapentin 800mg TID. Zolpidem Past Medical History - General Information source: Patient - Social History Smoking Status: Current Every Day Smoker Family History: CAD - mother, Hyperlipidemia, Hypertension Patient has suicidal ideation: No Patient has homicidal ideation: No - Past Medical History Cardiac Medical History: Reports: Hx Coronary Artery Disease, Hx Heart Attack - STENT 2013 , Hx Hypercholesterolemia, Hx Hypertension Pulmonary Medical History: Denies: Hx Asthma, Hx Bronchitis, Hx COPD, Hx Pneumonia Neurological Medical History: Reports: Hx Migraine. Denies: Hx Cerebrovascular Accident, Hx Seizures Endocrine Medical History: Reports: Hx Diabetes Mellitus Type 2 Renal/ Medical History: Denies: Hx Peritoneal Dialysis GI Medical History: Reports: Hx Cirrhosis, Hx Gastroesophageal Reflux Disease Musculoskeletal Medical History: Denies Hx Arthritis Psychiatric Medical History: Reports: Hx Depression Past Surgical History: Reports: Hx Cardiac Catheterization, Hx Cholecystectomy, Hx Coronary Stent, Hx Tonsillectomy. Denies: Hx Pacemaker - Immunizations Hx Diphtheria, Pertussis, Tetanus Vaccination: Yes Review of Systems - Review of Systems Constitutional: See HPI EENT: No symptoms reported Cardiovascular: See HPI Respiratory: See HPI Gastrointestinal: See HPI Genitourinary: No symptoms reported Female Genitourinary: No symptoms reported Musculoskeletal: No symptoms reported Skin: No symptoms reported Hematologic/Lymphatic: No symptoms reported Neurological/Psychological: No symptoms reported Physical Exam - Vital signs Vitals: Temp Pulse Resp BP Pulse Ox 99.1 F 99 20 120/71 99 05/18/19 06:52 05/18/19 06:52 05/18/19 06:52 05/18/19 06:52 05/18/19 06:52 - Notes Notes: PHYSICAL EXAMINATION:reviewed vital signs by RN GENERAL: Well-appearing, well-nourished and in no acute distress. HEAD: Atraumatic, normocephalic. EYES: Pupils equal round and reactive to light, extraocular movements intact, conjunctiva are normal. ENT: TM intact with bilateral serous effusion, no erythema. Nares boggy bilaterally, oropharynx with erythema without exudates. Moist mucous membranes. NECK: Normal range of motion, supple without lymphadenopathy LUNGS: Breath sounds clear to auscultation bilaterally and equal. No wheezes rales or rhonchi. HEART: Regular rate and rhythm without murmurs ABDOMEN: Soft, nontender, nondistended abdomen. No guarding, no rebound. No masses appreciated. Female : deferred Musculoskeletal: Normal range of motion, no pitting or edema. No cyanosis. NEUROLOGICAL: Cranial nerves grossly intact. Normal speech, normal gait. Normal sensory, motor exams PSYCH: Normal mood, normal affect. SKIN: Warm, Dry, normal turgor, no rashes or lesions noted. Course - Re-evaluation Re-evalutation: 05/18/19 17:29 Afebrile vital stable no distress. Nurse's notes reviewed. CBC negative for leukocytosis or anemia, CMP negative for renal dysfunction, slightly elevated AST. Lipase is normal. Electrolytes are normal. Chest x-ray negative for pneumonia, pneumothorax or any other acute pulmonary findings per radiology. EKG negative for acute STEMI, no ST segment changes. Unable to determine if patient has a PE from the CTA due to issues with a contrast during imaging, patient does require VQ scan. Discussed with interventional radiology with moderate ascites meant on CT abdomen, on further review they felt that patient had minimal ascites and did not require bedside paracentesis or interventional paracentesis. VQ scan negative for PE. Discussed with patient that her ascites is minimal, chest x-ray was negative for any pneumonia, pneumothorax or other pulmonary findings, EKG was normal, CBC unremarkable. After performing a Medical Screening Examination, I estimate there is LOW risk for ACUTE APPENDICITIS, BOWEL OBSTRUCTION, ACUTE CHOLECYSTITIS, PERFORATED DIVERTICULITIS, INCARCERATED HERNIA, PANCREATITIS, PELVIC INFLAMMATORY DISEASE, PERFORATED ULCER, ECTOPIC , or TUBO-OVARIAN ABSCESS, thus I consider the discharge disposition reasonable. Also, there is no evidence or peritonitis, sepsis, or toxicity. I have reevaluated this patient multiple times and no significant life threatening changes are noted. The patient and I have discussed the diagnosis and risks, and we agree with discharging home with close follow-up with the understanding that symptoms and presentations can change. We also discussed returning to the [facility] immediately if new or worsening symptoms occur. We have discussed the symptoms which are most concerning (e.g., bloody stool, fever, changing or worsening pain, vomiting) that necessitate immediate return - Vital Signs Vital signs: Temp Pulse Resp BP Pulse Ox 98.8 F 99 18 129/81 H 98 05/18/19 17:10 05/18/19 17:10 05/18/19 17:10 05/18/19 17:10 05/18/19 17:10 - Laboratory Result Diagrams: 05/18/19 09:00 05/18/19 09:00 Laboratory results interpreted by me: 05/18/19 05/18/19 05/18/19 09:00 09:00 09:00 WBC 3.9 L RDW 14.5 H Plt Count 64 L [place] % (Auto) 13.2 H PT 15.8 H D-Dimer 2.81 H Carbon Dioxide 32 H Creatinine 0.38 L Glucose 170 H POC Glucose Total Bilirubin 1.5 H AST 63 H Alkaline Phosphatase 237 H Albumin 3.1 L Urine Urobilinogen 05/18/19 05/18/19 11:41 11:47 WBC RDW Plt Count [place] % (Auto) PT D-Dimer Carbon Dioxide Creatinine Glucose POC Glucose 114 H Total Bilirubin AST Alkaline Phosphatase Albumin Urine Urobilinogen 4.0 H Discharge - Discharge Clinical Impression: Cough, Acute costochondritis Ascites Qualifiers: Ascites type: other type Qualified Code(s): R18.8 - Other ascites Condition: Stable Disposition: HOME, SELF-CARE Additional Instructions: You do not have a pulmonary embolism. You have very mild ascites in your abdomen, not enough to be drained at this time, you do need to follow-up outpatient with marble setter for management of your ascites. Your cardiac enzymes were all negative. Your chest x-ray was normal. We do not have a white count. Use rescue inhaler and Tessalon Perles as needed for cough. Follow-up with primary care provider within the next 24 to 48 hours. Return immediately for any new or worsening symptoms. Follow up with primary care provider, call tomorrow to make followup appointment. Prescriptions: Albuterol Sulfate [Proair Respiclick] 90 mcg IH Q4HP PRN #1 aer.pow.[email or web address] PRN Reason: Benzonatate [Tessalon Perles 100 mg Capsule] 100 mg PO Q8HP PRN #40 capsule PRN Reason: Forms: Return to Work Referrals: SUSAN CADET MD [ACTIVE STAFF] - Follow up tomorrow HERMINIO BRICE PA-C [Primary Care Provider] - Follow up tomorrow
[2019-05-18 09:30] LABS: ABSOLUTE EOSINOPHILS # (AUTO) 0.1 10^3/uL (0.0-0.6); ABSOLUTE LYMPHOCYTES (AUTO) 0.8 10^3/uL (0.5-4.7); ABSOLUTE MONOCYTES (AUTO) 0.5 10^3/uL (0.1-1.4); ABSOLUTE NEUT (AUTO) 2.5 10^3/uL (1.7-8.2); BASOPHILS % (AUTO) 1.1 % (0-2); EOSINOPHILS % (AUTO) 1.4 % (0-6); HEMATOCRIT 38.3 % (36.0-47.0); HEMOGLOBIN 13.1 g/dL (12.0-15.5); LYMPHOCYTES % (AUTO) 21.3 % (13-45); MEAN CORPUSCULAR HGB CONC 34.2 g/dL (32.0-36.0); MEAN CORPUSCULAR VOLUME 88 fl (80-97); MONOCYTES % (AUTO) 13.2 % (3-13); RED BLOOD COUNT 4.36 10^6/uL (3.72-5.28); RED CELL DISTRIBUTION WIDTH 14.5 % (11.5-14.0); TOTAL CELLS COUNTED % (AUTO) 100 %; WHITE BLOOD COUNT 3.9 10^3/uL (4.0-10.5)
[2019-05-18 09:39] LABS: INTERNATIONAL RATION (INR) 1.25; PROTHROMBIN TIME 15.8 SEC (11.4-15.4)
[2019-05-18 09:40] LABS: PARTIAL THROMBOPLASTIN TIME 35.4 SEC (23.5-35.8)
[2019-05-18 09:42] LABS: D-DIMER 2.81 ug/mL (0.00-0.50)
[2019-05-18 09:44] LABS: ALBUMIN 3.1 g/dL (3.5-5.0); ALKALINE PHOSPHATASE 237 U/L (38-126); ANION GAP 8 (5-19); ASPARTATE AMINO TRANSFERASE 63 U/L (14-36); BILIRUBIN,DIRECT 0.4 mg/dL (0.0-0.4); BILIRUBIN,TOTAL 1.5 mg/dL (0.2-1.3); BLOOD UREA NITROGEN 8 mg/dL (7-20); CALCIUM 9.1 mg/dL (8.4-10.2); CARBON DIOXIDE 32 mmol/L (22-30); CHLORIDE 98 mmol/L (98-107); GLUCOSE 170 mg/dL (75-110); POTASSIUM 3.8 mmol/L (3.6-5.0); TOTAL PROTEIN 7.7 g/dL (6.3-8.2)
[2019-05-18 09:56] LABS: NT PRO BNP 40 pg/mL (<125); TROPONIN I < 0.012 ng/mL
[2019-05-18 09:57] LABS: PLATELET COUNT 64 10^3/uL (150-450)
--- NOTE | 2019-05-18 09:57 | RADIOLOGY REPORT (SQ) ---
EXAM DESCRIPTION: CHEST SINGLE VIEW COMPLETED DATE/TIME: 05/18/2019 9:49 am REASON FOR STUDY: sob COMPARISON: 04/20/2014. EXAM PARAMETERS: NUMBER OF VIEWS: One view. TECHNIQUE: Single frontal radiographic view of the chest acquired. RADIATION DOSE: NA LIMITATIONS: None. FINDINGS: LUNGS AND PLEURA: No opacities, masses or pneumothorax. No pleural effusion. MEDIASTINUM AND HILAR STRUCTURES: No masses. Contour normal. HEART AND VASCULAR STRUCTURES: Heart normal in size. Normal vasculature. BONES: No acute findings. HARDWARE: None in the chest. OTHER: No other significant finding. IMPRESSION: NO ACUTE RADIOGRAPHIC FINDING IN THE CHEST. TECHNICAL DOCUMENTATION: JOB ID: [id number] [employer]- All Rights Reserved Reading location - IP/workstation name: [email or web address]
--- NOTE | 2019-05-18 11:30 | RADIOLOGY REPORT (SQ) ---
EXAM DESCRIPTION: CTA CHEST COMPLETED DATE/TIME: 05/18/2019 11:12 am REASON FOR STUDY: elevated d dimer COMPARISON: 01/12/2012 TECHNIQUE: CT scan of the chest performed using helical scanning technique with dynamic intravenous contrast injection. Images reviewed with lung, soft tissue and bone windows. Reconstructed coronal and sagittal MPR images reviewed. Additional 3 dimensional post-processing performed to develop Maximal Intensity Projection images ([place] P). All images stored on PACS. All CT scanners at this facility use dose modulation, iterative reconstruction, and/or weight based d osing when appropriate to reduce radiation dose to as low as reasonably achievable (ALARA). [facility]: Dose Right [facility]: CareDose [facility]: Dose Right [facility]: Teradose 4D [facility]: Podotree CONTRAST TYPE AND DOSE: contrast/concentration: Isovue 350.00 mg/ml; Total Contrast Delivered: 71.0 ml; Total Saline Delivered: 70.0 ml RENAL FUNCTION: None required. The patient is less than 50 years old. RADIATION DOSE: CT Rad equipment meets quality standard of care and radiation dose reduction techniq ues were employed. CTDIvol: 9.9 - 34.7 mGy. DLP: 4382 mGy-cm. . LIMITATIONS: Poor contrast bolus, breath motion artifact FINDINGS: LUNGS AND PLEURA: No masses, infiltrates, or pneumothorax. No pleural effusions or pleura l calcifications. AORTA AND GREAT VESSELS: No aneurysm. Contrast bolus not optimized for the aorta. HEART: No pericardial effusion. Three-vessel coronary artery calcifications. PULMONARY ARTERIES: Examination for pulmonary embolism is essentially nondiagnostic due to poor contr ast bolus and breath motion artifact throughout. There is no obvious central pulmonary embolism. HILAR AND MEDIASTINAL STRUCTURES: No identified masses or abnormal nodes. HARDWARE: None in the chest. UPPER ABDOMEN: See separate report of the CT of the abdomen. THYROID AND OTHER SOFT TISSUES: No masses. No adenopathy. BONES: No acute or significant finding. 3D MIPS: Confirm above findings. OTHER: No other significant finding. IMPRESSION: 1. Examination for pulmonary embolism is essentially nondiagnostic due to poor contrast bolus and breath motion artifact throughout. There is no obvious central pulmonary embolism. Consid er technical repeat CT examination or alternately V/Q examination there is persistent suspicion for p ulmonary embolism. 2. Coronary artery disease. COMMENT: Quality ID # [id number]: Final reports with documentation of one or more dose reduction techniques (e.g., Automated exposure control, adjustment of the mA and/or kV according to patient size, use of iterative reconstruction technique) TECHNICAL DOCUMENTATION: JOB ID: [id number] [employer]- All Rights Reserved Reading location - IP/workstation name: [email or web address]
--- NOTE | 2019-05-18 11:34 | RADIOLOGY REPORT (SQ) ---
EXAM DESCRIPTION: CT ABD/PELVIS WITH IV ONLY COMPLETED DATE/TIME: 05/18/2019 11:12 am REASON FOR STUDY: abd pain, vomiting/acities COMPARISON: None. TECHNIQUE: CT scan of the abdomen and pelvis performed using helical scanning technique with dynamic intravenous contrast injection. No oral contrast. Images reviewed with lung, soft tissue, and bone windows. Reconstructed coronal and sagittal MPR images reviewed. Delayed images for evaluation of the urinary system also acquired. All images stored on PACS. All CT scanners at this facility use dose modulation, iterative reconstruction, and/or weight based d osing when appropriate to reduce radiation dose to as low as reasonably achievable (ALARA). [facility]: Dose Right [facility]: CareDose [facility]: Dose Right [facility]: Teradose 4D [facility]: Sk[employer]ate CONTRAST TYPE AND DOSE: 71 mL Omnipaque 350 iodinated contrast IV RENAL FUNCTION: None required. The patient is less than 50 years old. RADIATION DOSE: 4381 mGy cm LIMITATIONS: None. FINDINGS: LOWER CHEST: See separate report of the CT of the chest. LIVER: Cirrhotic contour of the liver. SPLEEN: Gross splenomegaly, maximum span at least 19 cm. PANCREAS: No masses. No significant calcifications. No adjacent inflammation or peripancreatic fluid collections. Pancreatic duct not dilated. GALLBLADDER: Surgically absent. ADRENAL GLANDS: No significant masses or asymmetry. RIGHT KIDNEY AND URETER: No solid masses. No significant calcifications. No hydronephrosis or hyd roureter. LEFT KIDNEY AND URETER: No solid masses. No significant calcifications. No hydronephrosis or hydr oureter. AORTA AND VESSELS: No aneurysm. No dissection. Renal arteries, SMA, celiac without stenosis. Calcifi c atherosclerosis. RETROPERITONEUM: No retroperitoneal adenopathy, hemorrhage or masses. BOWEL AND PERITONEAL CAVITY: No masses or inflammatory changes. Moderate volume four-quadrant ascite s. APPENDIX: Normal. PELVIS: No mass. No free fluid. Normal bladder. ABDOMINAL WALL: No masses. No hernias. BONES: No significant or acute findings. OTHER: No other significant finding. IMPRESSION: 1. Cirrhosis and splenomegaly. 2. Moderate volume ascites. TECHNICAL DOCUMENTATION: JOB ID: [id number] Quality ID # [id number]: Final reports with documentation of one or more dose reduction techniques (e.g., Au tomated exposure control, adjustment of the mA and/or kV according to patient size, use of iterative reconstruction technique) 2010 [employer]- All Rights Reserved Reading location - IP/workstation name: [email or web address]
[2019-05-18 12:13] LABS: APPEARANCE,URINE CLEAR; BILIRUBIN,URINE NEGATIVE (NEGATIVE); COLOR,URINE YELLOW; GLUCOSE, URINE NEGATIVE (NEGATIVE); KETONES,URINE NEGATIVE (NEGATIVE); LEUKOCYTE ESTERASE,URINE NEGATIVE (NEGATIVE); NITRITE,URINE NEGATIVE (NEGATIVE); PROTEIN,URINE NEGATIVE (NEGATIVE); URINE SPECIFIC GRAVITY 1.023
--- NOTE | 2019-05-18 15:27 | RADIOLOGY REPORT (SQ) ---
EXAM DESCRIPTION: NM LUNG VENT/PERF SCAN COMPLETED DATE/TIME: 05/18/2019 3:16 pm REASON FOR STUDY: r/o PE COMPARISON: Chest x-ray dated 05/18/2019. RADIONUCLIDE AND DOSE: 4.96 millicuries TC-99m MAA Intravenous 32.8 millicuries TC-99m DTPA Inhaled aerosol TECHNIQUE: Eight views of the lungs acquired post ventilation of DTPA aerosol. Eight matching views of the lungs acquired following injection of MAA. LIMITATIONS: None. FINDINGS: VENTILATION: Symmetric and homogeneous distribution of DTPA aerosol during ventilatory pha se. No significant areas of photopenia. PERFUSION: Perfusion images with normal homogenous activity and no wedge-shaped or segmental defects. No ventilation-perfusion mismatches. OTHER: No other significant finding. IMPRESSION: NORMAL VENTILATION-PERFUSION LUNG SCAN. NEGATIVE FOR PULMONARY EMBOLI. TECHNICAL DOCUMENTATION: JOB ID: [id number] [employer]- All Rights Reserved Reading location - IP/workstation name: [email or web address]
[2019-05-18 17:20] VITALS: BP 129/81
--- NOTE | 2019-05-18 22:39 | EKG REPORT ---
SEVERITY:- ABNORMAL ECG - SINUS RHYTHM PROBABLE LEFT ATRIAL ABNORMALITY BORDERLINE R WAVE PROGRESSION, ANTERIOR LEADS BORDERLINE T ABNORMALITIES, INFERIOR LEADS : Confirmed by: Gauri Gann 18-May-2019 22:38:52
== END 2019-05-18 17:10 | disposition home or self-care (01) ==
LOC: ER 06:30
DX: R18.8 Other ascites (principal); M94.0 Chondrocostal junction syndrome [Tietze]; R10.10 Upper abdominal pain, unspecified; R07.2 Precordial pain; R06.02 Shortness of breath; R05 Cough; I10 Essential (primary) hypertension; E11.9 Type 2 diabetes mellitus without complications; R11.2 Nausea with vomiting, unspecified; R63.5 Abnormal weight gain; R68.83 Chills (without fever); F17.200 Nicotine dependence, unspecified, uncomplicated; I25.10 Atherosclerotic heart disease of native coronary artery without angina pectoris; I25.2 Old myocardial infarction; Z79.4 Long term (current) use of insulin; Z79.899 Other long term (current) drug therapy; Z95.5 Presence of coronary angioplasty implant and graft; Z90.49 Acquired absence of other specified parts of digestive tract; R74.0 Nonspecific elevation of levels of transaminase and lactic acid dehydrogenase [LDH]
CPT/HCPCS: 93005; 99284; 36415; 82962; 83690; 85025; 85610; 85730; 80053; 81001; 84484; 85379; 83880; 71045; 78582; 71275; 74177; 93010; A9540; A9567; Q9969

== ENCOUNTER → 2019-09-04 | Outpatient (CLI) | payer SELFPAY ==
--- NOTE | 2019-09-04 11:30 | ER RDC ASSESSMENT REPORT ---
Intake - In the Last 14 days Have you traveled outside [place]?: No Have you been in close contact with someone CONFIRMED: No Worked in Healthcare?: No - Symptoms Subjective Fever([place] feverish): Yes Chills: Yes Muscule Aches: Yes Runny Nose: No Sore Throat: Yes Cough (New or worsening chronic cough): Yes Shortness of breath: Yes Nausea or Vomiting: Yes Headache: Yes Abdominal Pain: Yes Diarrhea(3 or more loose stools in last 24 hours): No - Do you have any of the following Chronic lung disease: Asthma or emphysema or COPD: No Cystic Fibrosis: No Diabetes: Yes High Blood Pressure: Yes Cardiovascular Disease: Yes Cardiovascular Disease Comment: History of an PA with stent placement in 2017. Chronic Kidney Disease: No Chronic Liver Disease: Yes Chronic Liver Disease Comment: Cirrhosis Chronic blood disorder like Sickle Cell Disease: No Weak immune system due to disease or medication: No Neurologic condition that limits movement: No Developmental delay - Moderate to Severe: No Recent (within past 2 weeks) or current : No Morbid Obesity (>100 pounds over ideal weight): No - Objective Temperature: 100.8 F Pulse Rate: 105 Respiratory Rate: 20 Blood Pressure: 114/54 O2 Sat by Pulse Oximetry: 96 Objective: Patient is an acutely ill-appearing 49-year-old female who presents today for COVID-19 screening. Disposition: Home; Selfcare General - General Stated Complaint: Upper respiratory symptoms x3 days Mode of Arrival: Ambulatory Information source: Patient Notes: The patient was evaluated during the global COVID 19 pandemic, and that diagnosis was suspected/considered upon their initial presentation. Their evaluation, treatment, and testing was consistent with current guidelines for patients who present with complaints or symptoms that may be related to COVID 19. - HPI Patient complains to provider of: Upper respiratory symptoms Onset: Other - 3 days Onset/Duration: Gradual, Constant Quality of pain: Achy Severity: Moderate Pain Level: 3 Context: Generalized body aches. Associated symptoms: Body/muscle aches, Chills, Nonproductive cough, Fever, Headache, Nausea, Shortness of breath, Sore throat Exacerbated by: Denies Relieved by: Denies Similar symptoms previously: No Recently seen / treated by doctor: No - Related Data Allergies/Adverse Reactions: No Known Allergies Allergy (Verified 05/18/19 06:54) Past Medical History - Social History Smoking Status: Current Every Day Smoker Cigarette use (# per day): Yes - Half pack a day Chew tobacco use (# tins/day): No Smoking Education Provided: Yes Frequency of alcohol use: Occasional Drug Abuse: None Occupation: Unemployed Lives with: Family Family History: CAD - mother, Hyperlipidemia, Hypertension Patient has suicidal ideation: No Patient has homicidal ideation: No - Past Medical History Cardiac Medical History: Reports: Hx Coronary Artery Disease, Hx Heart Attack - STENT 2014 , Hx Hypercholesterolemia, Hx Hypertension Pulmonary Medical History: Denies: Hx Asthma, Hx Bronchitis, Hx COPD, Hx Pneumonia Neurological Medical History: Reports: Hx Migraine. Denies: Hx Cerebrovascular Accident, Hx Seizures Endocrine Medical History: Reports: Hx Diabetes Mellitus Type 2 Renal/ Medical History: Denies: Hx Peritoneal Dialysis GI Medical History: Reports: Hx Cirrhosis, Hx Gastroesophageal Reflux Disease Musculoskeletal Medical History: Denies Hx Arthritis Skin Medical History: Comment Only Hx MRSA - MRSA ABDOMEN 08/19 MRSA 01/19 [place] Psychiatric Medical History: Reports: Hx Depression Past Surgical History: Reports: Hx Cardiac Catheterization, Hx Cholecystectomy, Hx Coronary Stent, Hx Tonsillectomy. Denies: Hx Pacemaker Physical Exam - General General appearance: Other - Acutely Ill-appearing In distress: Mild Diagnostic Results Laboratory Results: Patient notified of NEGATIVE results on Rapid Flu (A & B) and Rapid Strep. Advised Throat Culture and COVID testing are PENDING, and they will be notified of any POSITIVE culture results at a later date/time. Advised reults of COVID testing in currently taking between 5-7 days, and they will be contacted by [facility] with either POSITIVE OR NEGATIVE results. Patient Education/Counseling Counseling/Education: Patient presents with upper respiratory symptoms worrisome for possible COVID- 19. Patient does not have emergency worring symptoms such as difficulty breathing, shortness of breath, chest pain, pressure, confusion or cyanosis. Patient appears suitable for discharge. Patient's vital signs are stable and patient is nontoxic in appearance. Good return precautions have been discussed with patient, patient verbalized understanding and is agreeable with discharge plan of care at this time. Patient provided COVID-19 discharge instructions to include: As a person under investigation for COVID-19, the [facility], division of public health advises you to adhere to the following guidance until your test results are reported to you. If your test result is positive, you will receive additional information from your provider and your local health department at that time. Remain at home until you are cleared by the health provider or public health authorities. Keep a log of visitors to your home, notify any visitors to your home of your isolation status. If you plan to move to a new address or leave the county, notify the local health department in your County. Call your doctor or seek care if you have an urgent medical need. Before seeking medical care, call ahead to get instructions from the provider before arriving at the medical office clinic or hospital. Notify them that you are being tested for the virus that causes Covid 19 so that arrangements can be made, as necessary, to prevent transmission to others in the healthcare setting. Next, notify the local health department in your county. If a medical emergency arises and you need to call 911, inform dispatch and the first responders that you are being tested for the virus that causes COVID-19. Next, notify the local health department in your county. Patient provided education on smoking cessation to include the harmful effects of smoking, especially in people with Co-morbid conditions such as Hypertension, Cirrhosis, and Diabetes Mellitus. Patient verbalized understanding of the harmful effects, as well as the increased health benefits of quitting. Guidance for worsening S/SX: For worsening symptoms, patient has been advised to contact their Primary Care Provider, or go to the nearest Emergency Department. RDC Discharge - Discharge Clinical Impression: COVID-19 Screening URI (upper respiratory infection) Qualifiers: URI type: unspecified URI Qualified Code(s): J06.9 - Acute upper respiratory infection, unspecified Condition: Stable Disposition: Home; Selfcare
[2019-09-04 11:35] VITALS: BP 114/54
[2019-09-04 12:01] LABS: A TYPE INFLUENZA AG NEGATIVE (NEGATIVE); B INFLUENZA AG NEGATIVE (NEGATIVE)
== END ==
LOC: RDC 10:45
PROVIDERS: ATTEND Nurse Practitioner Family
DX: Z20.828 Contact with and (suspected) exposure to other viral communicable diseases (principal)
CPT/HCPCS: 87070; 87635; 87804; 87880

== ENCOUNTER 2019-09-07 17:37 | Emergency (ER) | payer SELFPAY ==
[2019-09-07] MEDS ORDERED: OXYCODONE-ACETAMINOPHEN 5-325 MG TABLET PO ONE (18:06)
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
[2019-09-07 19:41] VITALS: BP 120/59
[2019-09-07] MEDS ORDERED: HYDROCODONE/ACETAMINOPHEN 5-325 MG (6 TAB/ER DISP) PO PRN (19:43)
== END 2019-09-07 19:42 | disposition home or self-care (01) ==
LOC: ER 17:37
DX: S42.292G Other displaced fracture of upper end of left humerus, subsequent encounter for fracture with delayed healing (principal); M25.512 Pain in left shoulder; M79.89 Other specified soft tissue disorders; V48.5XXA Car driver injured in noncollision transport accident in traffic accident, initial encounter; F17.200 Nicotine dependence, unspecified, uncomplicated; I25.10 Atherosclerotic heart disease of native coronary artery without angina pectoris; I25.2 Old myocardial infarction; I10 Essential (primary) hypertension; E11.9 Type 2 diabetes mellitus without complications
CPT/HCPCS: 99283